=== PATIENT | female | born 1950 | race Caucasian/White ===

== ENCOUNTER 2020-01-11 23:33 | Emergency (ER) | payer MEDICARE, MEDICAID ==
[~2020-01-11] VITALS: Ht 152.4 cm; Wt 73.2 kg
[2020-01-12 00:13] VITALS: BP 168/80
[2020-01-12] MEDS ORDERED: PRED20TA PO (00:14)
[2020-01-12] MEDS ORDERED: predniSONE 20 mg tablet PO ONE (00:15)
== END 2020-01-12 00:26 | disposition home or self-care (01) ==
LOC: ER 23:34
DX: T78.40XA Allergy, unspecified, initial encounter (principal); F17.200 Nicotine dependence, unspecified, uncomplicated; X58.XXXA Exposure to other specified factors, initial encounter
CPT/HCPCS: 99283; J7512

== ENCOUNTER 2020-01-16 21:50 | Emergency (ER) | payer MEDICARE, MEDICAID ==
[~2020-01-16] VITALS: Ht 152.4 cm; Wt 161.0 kg
[~2020-01-16 21:50] MED LIST: PRED20TA PO
[2020-01-16] MEDS ORDERED: normal saline 1000ML IV soln IVB ONE ×2 (22:05→23:10)
[2020-01-16] MEDS ORDERED: magnesium citrate 296ml oral solution PO ONE (23:10)
[2020-01-16 23:34] LABS: BASOPHILS % (AUTO) 0.2 % (0-1); EOSINOPHILS % (AUTO) 0.2 % (0-6); HEMATOCRIT 54.3 % (35.0-45.0); LYMPHOCYTES # (AUTO) 2.3 X10'3 (1.1-4.8); LYMPHOCYTES % (AUTO) 10.8 % (21-51); MEAN CORPUSCULAR HEMOGLOBIN 28.3 PG (27.0-31.0); MEAN CORPUSCULAR HGB CONC 33.6 g/dL (33.0-36.5); MEAN CORPUSCULAR VOLUME 84.2 FL (78-98); MEAN PLATELET VOLUME 9.9 FL (7.4-10.4); MONOCYTES # (AUTO) 1.4 X10'3 (0-0.9); MONOCYTES % (AUTO) 6.7 % (2-12); NEUTROPHILS # (AUTO) 17.3 X10'3 (1.8-7.7); NEUTROPHILS % (AUTO) 82.1 % (42-75); PLATELET COUNT 304 X10'3 (140-440); RED BLOOD COUNT 6.46 X10'6 (4.20-5.60); RED CELL DISTRIBUTION WIDTH 18.5 % (11.5-14.5); WHITE BLOOD COUNT 21.1 X10'3 (4.5-11.0)
[2020-01-16 23:37] LABS: HEMOGLOBIN 18.2 g/dl (12.0-16.0)
[2020-01-16] MEDS ORDERED: ketorolac tromethamine 15mg/ml inj. IV ONE (23:40)
[2020-01-16 23:44] LABS: ALANINE AMINOTRANSFERASE 16 U/L (12-78); ALBUMIN 3.4 G/DL (3.4-5.0); ALKALINE PHOSPHATASE 71 IU/L (46-116); ANION GAP 11 (8-16); ASPARTATE AMINO TRANSFERASE 13 U/L (10-37); BILIRUBIN,TOTAL 0.6 MG/DL (0.1-1.0); BLOOD UREA NITROGEN 16 MG/DL (7-18); BUN/CREATININE RATIO 19.8 (6.6-38.0); CALCIUM 8.7 MG/DL (8.5-10.1); CHLORIDE 107 MMOL/L (99-107); CREATININE 0.81 MG/DL (0.40-0.90); GLUCOSE 105 MG/DL (70-104); POTASSIUM 3.8 MMOL/L (3.5-5.1); SODIUM 145 MMOL/L (135-145); TOTAL CARBON DIOXIDE 27.3 MMOL/L (24-32); TOTAL PROTEIN 6.9 G/DL (6.4-8.2); eGFR 70 ML/MIN
--- NOTE | 2020-01-16 23:45 | NUR ---
Disimpaction attempted with approval of MD Espino. Two small hard clumps of stool were removed. Pt verbalized that the procedure was extremely painful. Notified MD Espino who ordered 15mg of toradol. VERONICA Olsen present as champarone.
[2020-01-17] MEDS ORDERED: ondansetron/PF 4mg/2ml inj IV PRN (00:10)
[2020-01-17 00:13] LABS: TOTAL CELLS COUNTED 100
[2020-01-17 00:14] LABS: ANISOCYTOSIS 2+; LARGE PLATELETS FEW; PLATELET ESTIMATE NORMAL; POLYCHROMASIA FEW
[2020-01-17] MEDS: morphine 4 MG/ML inj SYRINge IV PRN ×2 (00:18→00:36)
--- NOTE | 2020-01-17 00:25 | NUR ---
I was able to remove 1 chunk of stool approx 2 inch x 3 inches from anal vault. It is hard. She refused to have me do any more. She refused to let me put some SS enema up there. She states she wants to just go home. Then she said to just give her a break. I infomed primary RN to see how she does and to perhaps adm more morphine in 15 min per order if she would like that and then perhaps I can proceed again. Will wait and see. Pt made aware of dangers of being so constipated.
[2020-01-17 00:26] VITALS: BP 110/80
--- NOTE | 2020-01-17 00:45 | NUR ---
Md Espino notified of patient's continuing to experience extreme pain while being disimpacted. MD ordered 4mg morphine to be given prior to disimpaction attempt. Pt was given soap suds enema as well at this time.
--- NOTE | 2020-01-17 00:50 | NUR ---
3rd attempt at disimpaction was performed with 2 more small clumps of stool removed. TOREY Longoria was present as carlos.
[2020-01-17] MEDS ORDERED: LIDOcaine 2% 10ml TOPICAL JELLY (Urojet) MM ONE (00:55)
--- NOTE | 2020-01-17 01:15 | NUR ---
Pt is asking to leave, states that she was able to have a small bowel movement on her own in the commode and is requesting that she handle the rest of her constipation on her own at home. The risks of the impaction were once again emphasized to the patient who was adament about returning home.
--- NOTE | 2020-01-17 01:16 | NUR ---
MD Espino notified of patient's request to DC.
== END 2020-01-17 01:30 | disposition home or self-care (01) ==
LOC: ER 21:51
DX: K59.00 Constipation, unspecified (principal); N13.2 Hydronephrosis with renal and ureteral calculous obstruction; R19.7 Diarrhea, unspecified; Z90.710 Acquired absence of both cervix and uterus; Z79.899 Other long term (current) drug therapy
CPT/HCPCS: 36415; 74176; 80053; 83605; 84145; 85025; 96361; 96374; 96375; 99284; J1885; J2270; J7030

== ENCOUNTER 2020-11-06 00:18 | Emergency (ER) | payer MEDICARE, MEDICAID ==
[~2020-11-06 00:18] MED LIST changes: +CALC500T63 PO; +CYCL-1 PO; +DOCU-267 PO; +ERGO500093 PO; +GABA300C PO; +LISI10TA27 PO; +METO-384 PO; +PANT-47 PO; -PRED20TA PO
== END 2020-11-06 01:35 | disposition left against medical advice (07) ==
LOC: ER 00:19
DX: M54.89 Other dorsalgia (principal); Z53.21 Procedure and treatment not carried out due to patient leaving prior to being seen by health care provider

== ENCOUNTER 2020-11-07 14:56 | Emergency (ER) | payer MEDICARE, MEDICAID ==
[~2020-11-07] VITALS: Ht 152.4 cm; Wt 53.9 kg
[2020-11-07] MEDS ORDERED: pantoprazole 40 MG vial IV ONE (16:35)
[2020-11-07] MEDS ORDERED: normal saline 1000ML IV soln IVB ONE (16:35)
[2020-11-07] MEDS ORDERED: morphine 2 MG/ML inj. syringe IV PRN (16:35)
[2020-11-07 17:02] LABS: BASOPHILS # (AUTO) 0.2 X10'3 (0-0.2); BASOPHILS % (AUTO) 1.2 % (0-1); EOSINOPHILS # (AUTO) 0.2 X10'3 (0-0.9); EOSINOPHILS % (AUTO) 1.2 % (0-6); HEMATOCRIT 49.6 % (35.0-45.0); HEMOGLOBIN 15.9 g/dl (12.0-16.0); LYMPHOCYTES # (AUTO) 2.1 X10'3 (1.1-4.8); LYMPHOCYTES % (AUTO) 13.5 % (21-51); MEAN CORPUSCULAR HEMOGLOBIN 25.5 PG (27.0-31.0); MEAN CORPUSCULAR HGB CONC 32.1 g/dL (33.0-36.5); MEAN CORPUSCULAR VOLUME 79.5 FL (78-98); MEAN PLATELET VOLUME 9.5 FL (7.4-10.4); MONOCYTES # (AUTO) 1.3 X10'3 (0-0.9); MONOCYTES % (AUTO) 8.4 % (2-12); NEUTROPHILS # (AUTO) 11.5 X10'3 (1.8-7.7); NEUTROPHILS % (AUTO) 75.7 % (42-75); PLATELET COUNT 306 X10'3 (140-440); RED BLOOD COUNT 6.24 X10'6 (4.20-5.60); WHITE BLOOD COUNT 15.3 X10'3 (4.5-11.0)
[2020-11-07 18:02] LABS: ANISOCYTOSIS 3+; HYPOCHROMASIA 1+; LARGE PLATELETS FEW; MICROCYTOSIS 1+; PLATELET ESTIMATE NORMAL; POLYCHROMASIA 1+; ROULEAUX 1+; TARGET CELLS FEW
[2020-11-07 19:25] LABS: ALANINE AMINOTRANSFERASE 17 U/L (12-78); ALBUMIN 3.5 G/DL (3.4-5.0); ALKALINE PHOSPHATASE 83 IU/L (46-116); ANION GAP 11 (8-16); ASPARTATE AMINO TRANSFERASE 19 U/L (10-37); BILIRUBIN,TOTAL 0.6 MG/DL (0.1-1.0); BLOOD UREA NITROGEN 15 MG/DL (7-18); BUN/CREATININE RATIO 25.9 (6.6-38.0); CALCIUM 8.3 MG/DL (8.5-10.1); CHLORIDE 104 MMOL/L (99-107); CREATININE 0.58 MG/DL (0.40-0.90); GLUCOSE 96 MG/DL (70-104); LIPASE 58 U/L (73-393); POTASSIUM 4.4 MMOL/L (3.5-5.1); SODIUM 143 MMOL/L (135-145); TOTAL CARBON DIOXIDE 27.7 MMOL/L (24-32); TOTAL PROTEIN 6.9 G/DL (6.4-8.2); eGFR > 90 ML/MIN
[2020-11-07 19:59] LABS: CLARITY,URINE CLEAR (Clear); COLOR,URINE YELLOW (Yellow); GLUCOSE, URINE NEGATIVE (Neg); KETONES,URINE NEGATIVE (Neg); LEUKOCYTE ESTERASE ,URINE NEGATIVE (Neg); NITRITES, URINE NEGATIVE (Neg); OCCULT BLOOD,URINE NEGATIVE (Neg); PH,URINE 5.5 (4.8-8.0); PROTEIN,URINE NEGATIVE (Neg); UROBILINOGEN,URINE 0.2 E.U/dL (0.2-1.0)
[2020-11-07 20:04] LABS: UA COLLECTION TYPE CLN CATCH MIDSTREAM
[2020-11-07] MEDS ORDERED: iohexol 300mg/ml 100ml inj. ONE (20:26)
--- NOTE | 2020-11-07 22:09 | NUR ---
Pt ambulated steady gait around ER, no distress, ready for d/c
[2020-11-07 22:19] VITALS: BP 110/75
== END 2020-11-07 22:21 | disposition home or self-care (01) ==
LOC: ER 14:56
DX: M54.89 Other dorsalgia (principal); K59.00 Constipation, unspecified; G89.29 Other chronic pain; R31.9 Hematuria, unspecified; F17.200 Nicotine dependence, unspecified, uncomplicated; Z90.710 Acquired absence of both cervix and uterus; Z91.030 Bee allergy status; Z91.018 Allergy to other foods; Z79.899 Other long term (current) drug therapy
CPT/HCPCS: 36415; 74177; 76937; 80053; 81003; 83690; 85008; 85025; 96374; 96375; 99285; C9113; J2270; J7030; Q9967

== ENCOUNTER 2020-11-10 19:55 | Emergency (ER) | payer MEDICARE, MEDICAID ==
[~2020-11-10] VITALS: Ht 152.4 cm; Wt 54.1 kg
[2020-11-10 20:05] VITALS: BP 128/75
== END 2020-11-10 21:07 | disposition left against medical advice (07) ==
LOC: ER 19:55
DX: M54.89 Other dorsalgia (principal); Z53.21 Procedure and treatment not carried out due to patient leaving prior to being seen by health care provider

== ENCOUNTER 2020-11-23 14:05 | Emergency (ER) | payer MEDICARE, MEDICAID ==
[~2020-11-23] VITALS: Ht 152.4 cm; Wt 54.8 kg
== END 2020-11-23 14:36 | disposition left against medical advice (07) ==
LOC: ER 14:05
DX: M54.9 Dorsalgia, unspecified (principal); G89.29 Other chronic pain; Z53.21 Procedure and treatment not carried out due to patient leaving prior to being seen by health care provider

== ENCOUNTER 2020-12-06 14:29 | Emergency (ER) | payer MEDICARE, MEDICAID ==
[~2020-12-06] VITALS: Ht 152.4 cm; Wt 54.5 kg
[2020-12-06] MEDS ORDERED: HYDROcodone/acetaminophen 10/325mg tab PO ONE (14:45)
[2020-12-06 15:51] VITALS: BP 104/75
== END 2020-12-06 15:53 | disposition home or self-care (01) ==
LOC: ER 14:30
DX: S39.012A Strain of muscle, fascia and tendon of lower back, initial encounter (principal); S01.81XA Laceration without foreign body of other part of head, initial encounter; S09.90XA Unspecified injury of head, initial encounter; G89.29 Other chronic pain; Z90.710 Acquired absence of both cervix and uterus; Z79.899 Other long term (current) drug therapy; Z91.030 Bee allergy status; Z91.018 Allergy to other foods; W18.30XA Fall on same level, unspecified, initial encounter; Z91.81 History of falling; Y93.01 Activity, walking, marching and hiking; Y92.89 Other specified places as the place of occurrence of the external cause; Y99.8 Other external cause status
CPT/HCPCS: 70450; 72100; 99284

== ENCOUNTER 2020-12-15 22:12 | Emergency (ER) | payer MEDICARE, MEDICAID ==
[~2020-12-15] VITALS: Ht 152.4 cm; Wt 50.0 kg
[2020-12-15 23:26] LABS: BASOPHILS # (AUTO) 0.1 X10'3 (0-0.2); BASOPHILS % (AUTO) 0.6 % (0-1); EOSINOPHILS # (AUTO) 0.2 X10'3 (0-0.9); EOSINOPHILS % (AUTO) 1.3 % (0-6); HEMATOCRIT 47.7 % (35.0-45.0); HEMOGLOBIN 15.8 g/dl (12.0-16.0); LYMPHOCYTES # (AUTO) 1.4 X10'3 (1.1-4.8); LYMPHOCYTES % (AUTO) 9.7 % (21-51); MEAN CORPUSCULAR HEMOGLOBIN 24.5 PG (27.0-31.0); MEAN CORPUSCULAR HGB CONC 33.1 g/dL (33.0-36.5); MEAN CORPUSCULAR VOLUME 73.8 FL (78-98); MEAN PLATELET VOLUME 9.3 FL (7.4-10.4); MONOCYTES # (AUTO) 1.1 X10'3 (0-0.9); MONOCYTES % (AUTO) 7.7 % (2-12); NEUTROPHILS % (AUTO) 80.7 % (42-75); PLATELET COUNT 317 X10'3 (140-440); RED BLOOD COUNT 6.46 X10'6 (4.20-5.60); RED CELL DISTRIBUTION WIDTH 21.1 % (11.5-14.5); WHITE BLOOD COUNT 14.8 X10'3 (4.5-11.0)
[2020-12-15 23:49] LABS: ALANINE AMINOTRANSFERASE 14 U/L (12-78); ALBUMIN 3.1 G/DL (3.4-5.0); ALBUMIN/GLOBULIN RATIO 0.8 (1.1-1.5); ALKALINE PHOSPHATASE 84 IU/L (46-116); ANION GAP 8 (8-16); ASPARTATE AMINO TRANSFERASE 18 U/L (10-37); BILIRUBIN,TOTAL 0.5 MG/DL (0.1-1.0); BLOOD UREA NITROGEN 9 MG/DL (7-18); BUN/CREATININE RATIO 12.3 (6.6-38.0); CALCIUM 8.5 MG/DL (8.5-10.1); CHLORIDE 101 MMOL/L (99-107); CREATININE 0.73 MG/DL (0.40-0.90); GLUCOSE 113 MG/DL (70-104); LIPASE < 50 U/L (73-393); POTASSIUM 3.7 MMOL/L (3.5-5.1); SODIUM 140 MMOL/L (135-145); TOTAL CARBON DIOXIDE 31.3 MMOL/L (24-32); eGFR 79 ML/MIN
[2020-12-16 00:10] LABS: COLOR,URINE YELLOW (Yellow); GLUCOSE, URINE NEGATIVE (Neg); KETONES,URINE NEGATIVE (Neg); LEUKOCYTE ESTERASE ,URINE NEGATIVE (Neg); NITRITES, URINE NEGATIVE (Neg); OCCULT BLOOD,URINE NEGATIVE (Neg); PROTEIN,URINE NEGATIVE (Neg); UROBILINOGEN,URINE 0.2 E.U/dL (0.2-1.0)
[2020-12-16 00:14] LABS: UA COLLECTION TYPE VOIDED
[2020-12-16 00:16] LABS: CLARITY,URINE SLIGHTLY CLOUDY (Clear)
[2020-12-16 00:17] LABS: BACTERIA,URINE FEW /HPF (Neg); RBC,URINE NONE SEEN /HPF (0-2); SQUAMOUS EPITHELIAL CELL,UR FEW /LPF (FEW); WBC,URINE 0-4 /HPF (0-4)
[2020-12-16 00:22] LABS: ANISOCYTOSIS 3+; HYPOCHROMASIA 1+; LARGE PLATELETS FEW; MICROCYTOSIS 1+; PLATELET ESTIMATE NORMAL; POLYCHROMASIA 1+; TARGET CELLS FEW
[2020-12-16 01:56] VITALS: BP 111/76
[2020-12-16 02:04] LABS: ETHANOL < 0.010 GM/DL (0.0-0.010)
[2020-12-16] MEDS ORDERED: ketorolac trometh inj. 60 MG/2 ML VIAL IM ONE (02:15)
[2020-12-16] MEDS ORDERED: methylnaltrexone br 12mg/0.6ml inj***SubQ only SQ ONE (02:20)
[2020-12-16] MEDS ORDERED: bisacodyl 10mg suppository rectal RC ONE (02:20)
[2020-12-16] MEDS ORDERED: BISA10SU60 RC (02:20)
[2020-12-16 02:41] LABS: URINE AMPHETAMINE SCREEN NEGATIVE (Neg); URINE BARBITUATE SCREEN NEGATIVE (Neg); URINE BENZODIAZEPINES SCREEN NEGATIVE (Neg); URINE CANNABINOID SCREEN NEGATIVE (Neg); URINE COCAINE SCREEN NEGATIVE (Neg); URINE METHADONE SCREEN NEGATIVE (Neg); URINE OPIATE SCREEN NEGATIVE (Neg); URINE PHENCYCLIDINE SCREEN NEGATIVE (Neg)
== END 2020-12-16 02:36 | disposition home or self-care (01) ==
LOC: ER 22:12
DX: K59.00 Constipation, unspecified (principal); G89.29 Other chronic pain; M54.9 Dorsalgia, unspecified; F17.210 Nicotine dependence, cigarettes, uncomplicated; Z91.018 Allergy to other foods; Z91.030 Bee allergy status; R42 Dizziness and giddiness; R55 Syncope and collapse
CPT/HCPCS: 36415; 70450; 74018; 80053; 80305; 80320; 81001; 83690; 85025; 93005; 96372; 99285; J1885; J2212; 81003; 85008